=== PATIENT | female | born 1970 | race Caucasian/White ===

== ENCOUNTER → 2016-09-08 | Day surgery (SDC) | payer MEDICARE ==
[~2016-09-08] MED LIST: ALPRAZOLAM PO; ATARAX; AUGMENTIN PO; AUGMENTIN875 MG PO; CARAFATE1 G PO; CARAFATE1 GM PO; COUMADIN5 MG PO; DEPAKOTE PO; DIOVAN; DIOVAN HCT 80/11 TAB PO; EFFEXOR; EFFEXOR XR PO; EFFEXOR75 MG PO; GLUCOPHAGE XR500 MG PO; GLUCOPHAGE500 MG PO; HCTZ PO; HYDROCHLOROTHIA25 MG PO; K-DUR20 ME1 PO; K-DUR20 ME2 PO; LEXAPRO; LISINOPRIL10 MG PO; LISINOPRIL20 MG PO; LORTAB 2.5/5001 TAB PO; LORTAB 7.5-5001 TAB PO; LOVENOX SUBQ; METFORMIN HCL500 M2 PO; MIRALAX17 G1 PO; OXYCONTIN PO; PAXIL PO; PERCOCET 10-651 EACH PO; PHENERGAN25 MG PO; PROTONIX PO; PROVENTIL INH0.5 ML IH; RELAFEN PO; ROBAXIN500 MG PO; SKELAXIN PO; SYNTHROID PO; TRAZODONE; TYLENOL #3 PO; VICODIN PO; VOLTAREN75 MG PO; ZITHROMAX500 MG PO; ZOFRAN ODT4 MG PO; ZOFRANODT PO
== END | disposition home or self-care (01) ==
LOC: CCSC 10:13
DX: M51.16 Intervertebral disc disorders with radiculopathy, lumbar region (principal); F41.9 Anxiety disorder, unspecified; F32.9 Major depressive disorder, single episode, unspecified; E03.9 Hypothyroidism, unspecified; E11.9 Type 2 diabetes mellitus without complications; Z79.899 Other long term (current) drug therapy
CPT/HCPCS: 82947; J1040; J2250

== ENCOUNTER 2016-11-16 23:46 | Emergency (ER) | payer MEDICARE ==
--- NOTE | ~2016-11-16 | CR2 ---
[facility] A Service [facility] RADIOLOGY TEXT RESULTS PATIENT: ISIDORO STEVENS LOCATION: SED : 66 UNIT #: [id number] AGE: [address]: Carlos Antoine MD SEX: F ORDER DR: [id number] [place] [id number] E MR#: [id number] Acc #: [id number] NAME: ISIDORO STEVENS : 1970 SEX: F STUDY DATE/TIME: 11/17/2016 0:54 UNIT: SED ROOM: STUDY DESCRIPTION: CR Abdomen Acute Series Attending Physician: Soni Boyer Pa-C Ordering Physician: Soni Boyer Pa-C Primary Care Physician: Germain Lepe D.O. MEDICAL IMAGING REPORT This report is preliminary unless electronic signature is present. EXAM Acute abdomen series INDICATIONS Abdominal pain, epigastric pain for 4 days. COMPARISON 12/04/2013 FINDINGS A PA view of the chest and a flat and upright view of the abdomen were obtained. The heart size and vascularity are normal and the lungs are clear. The bowel gas pattern is nonspecific, without evidence of obstruction. There is a gastric band device present. The bones are unremarkable. IMPRESSION 1. No evidence of bowel obstruction or inflammation. 2. Normal chest. Dictated by... Jignesh Heart M.D. THIS IS AN ELECTRONICALLY VERIFIED REPORT Jignesh Heart M.D. at 11/17/2016 5:51 AM FEL/psc TD: 11/17/2016 02:01 JOB #: [id number] [facility] A Service [facility] RADIOLOGY TEXT RESULTS PATIENT: ISIDORO STEVENS LOCATION: SED : 66 UNIT #: [id number] AGE: [address]: Carlos Antoine MD SEX: F ORDER DR: MEDICAL IMAGING REPORT Page 1 of 1
--- NOTE | ~2016-11-16 | CT2 ---
[facility] A Service of [facility] RADIOLOGY TEXT RESULTS PATIENT: ISIDORO STEVENS LOCATION: SED : 66 UNIT #: [id number] AGE: [address]: Carlos Antoine MD SEX: F ORDER DR: [id number] [address] [address] [id number] E MR#: [id number] Acc #: [id number] NAME: ISIDORO STEVENS. : 1970 SEX: F STUDY DATE/TIME: 11/17/2016 2:11 UNIT: SED ROOM: STUDY DESCRIPTION: CT Abd and Pelv W Cont Attending Physician: Carlos Antoine M.D. Ordering Physician: Soni Boyer Pa-C Primary Care Physician: Germain Lepe D.O. MEDICAL IMAGING REPORT This report is preliminary unless electronic signature is present. EXAM CT abdomen and pelvis with contrast INDICATIONS Epigastric pain and nausea for 3 days. 11/17 COMPARISON 08/14/2015 TECHNIQUE Patient was given 100 mL of Isovue-370 and axial 5-mm images were obtained through the abdomen and pelvis. This CT exam was performed with one or more of the following radiation dose reduction techniques: Automatic exposure control, adjustment of mA and/or kV according to patient size, and iterative reconstruction. FINDINGS Lung bases are clear. There is a gastric band device present. The liver has a small, 15-mm cyst near the falciform ligament. The gallbladder contains numerous small stones and is otherwise normal. The spleen, pancreas, adrenal glands and kidneys are normal except for a 12-mm right renal cyst. The aorta is normal in size. The uterus, adnexal regions and bladder are normal. IMPRESSION 1. Numerous small gallstones without evidence of cholecystitis. 2. Small hepatic and right renal cyst. 3. Gastric band device. 4. Otherwise, normal. [facility] A Service of [facility] RADIOLOGY TEXT RESULTS PATIENT: ISIDORO STEVENS LOCATION: SED : 66 UNIT #: [id number] AGE: [address]: Carlos Antoine MD SEX: F ORDER DR: Dictated by... Jignesh Heart M.D. THIS IS AN ELECTRONICALLY VERIFIED REPORT Jignesh Heart M.D. at 11/17/2016 5:51 AM FEL/psc TD: 11/17/2016 03:40 JOB #: [id number] MEDICAL IMAGING REPORT Page 1 of 1
[~2016-11-16 23:46] MED LIST changes: -CARAFATE1 GM PO
[2016-11-17 00:49] LABS: BASOPHIL# 0.1 X10e3 (0-0.3); BASOPHIL% 1.1 % (0-2.5); EOSINOPHIL# 0.1 X10e3 (0-0.7); EOSINOPHIL% 2.3 % (0.0-7.0); HEMATOCRIT 42.4 % (35.0-45.0); HEMOGLOBIN 14.3 gm/dL (12.0-16.0); LYMPHOCYTE# 2.1 X10e3 (1.0-3.5); LYMPHOCYTE% 37.6 % (17.0-45.0); MEAN CELL VOLUME 90.1 FL (83-96); MEAN CORPUSCULAR HEMOGLOBIN 30.4 PG (28-34); MEAN CORPUSCULAR HGB CONC 33.8 g/dL (30-36); MEAN PLATELET VOLUME 7.6 FL (6.5-11.5); MONOCYTE# 0.4 X10e3 (0-1.0); MONOCYTE% 7.5 % (3.0-12.0); NEUTROPHIL# 2.9 X10e3 (1.5-7.1); NEUTROPHIL% 51.5 % (40-75); PLATELET COUNT 260 X10e3 (140-420); RED BLOOD COUNT 4.71 X10e (3.90-5.30); RED CELL DISTRIBUTION WIDTH 13.1 % (11.0-15.5); WHITE BLOOD COUNT 5.6 X10e3 (4.0-10.5)
[2016-11-17 00:50] LABS: URINE SOURCE CLEAN CATCH
[2016-11-17 00:51] LABS: DIFF IND NO
[2016-11-17 00:52] LABS: URINE APPEARANCE CLEAR; URINE BILIRUBIN NEG (NEG); URINE BLOOD TRACE-INTACT (NEG); URINE COLOR YELLOW; URINE GLUCOSE NEG (NORM); URINE KETONE NEG (NEG); URINE LEUKOCYTE ESTERASE 2+ (NEG); URINE NITRATE NEG (NEG); URINE PH 7.5 (5-8); URINE PROTEIN NEG (NEG); URINE SPECIFIC GRAVITY <=1.005 (1.003-1.035); URINE UROBILINOGEN 0.2 MG/DL (NORM)
[2016-11-17 00:54] LABS: MICRO INDICATED? YES
[2016-11-17 00:56] LABS: CULTURE INDICATED? YES; URINE BACTERIA 1+ (NEG); URINE SQUAMOUS EPITHELIAL CELL OCCAS /[HPF]; URINE TRANSITIONAL EPI CELLS FEW /[HPF]
[2016-11-17 01:10] LABS: ALBUMIN SERUM 4.2 g/dL (3.5-5.0); ALKALINE PHOSPHATASE 248 U/L (32-92); ALT (SGPT) 453 U/L (10-40); AMYLASE 18 U/L (0-46); AST (SGOT) 258 U/L (10-42); BILIRUBIN, DIRECT <0.1 mg/dL (0.0-0.2); BILIRUBIN,INDIRECT 0.1 mg/dL (0.0-0.9); BILIRUBIN,TOTAL 0.2 mg/dL (0.2-2.0); BLOOD UREA NITROGEN 10 mg/dL (9-23); BUN/CREATININE RATIO 14.28; CALCIUM SERUM 9.1 mg/dL (8.4-10.2); CARBON DIOXIDE 26 mmol/L (22-31); CHLORIDE 102 mmol/L (100-111); CREATININE SERUM 0.7 mg/dL (0.6-1.4); GLOM FILT RATE Estimated 102.5 mL/min (>60); GLUCOSE FASTING 111 mg/dL (70-110); LIPASE 42 U/L (22-51); POTASSIUM 3.3 mmol/L (3.5-5.1); PROTEIN TOTAL SERUM 7.4 g/dL (6.0-8.3); SODIUM 133 mmol/L (135-145)
[2016-12-28] MEDS ORDERED: PROTONIX PO (15:39)
[2016-12-29] MEDS ORDERED: CARAFATE1 GM PO (12:25)
== END 2016-11-17 03:16 | disposition home or self-care (01) ==
LOC: SED 23:46
PROVIDERS: Physician Assistant Medical
DX: K80.70 Calculus of gallbladder and bile duct without cholecystitis without obstruction (principal); K75.9 Inflammatory liver disease, unspecified; E11.9 Type 2 diabetes mellitus without complications; I10 Essential (primary) hypertension; F32.9 Major depressive disorder, single episode, unspecified; Z90.49 Acquired absence of other specified parts of digestive tract; Z98.51 Tubal ligation status; Z79.899 Other long term (current) drug therapy; Z88.1 Allergy status to other antibiotic agents; Z88.2 Allergy status to sulfonamides
CPT/HCPCS: 74022; 74177; 80048; 80076; 81003; 82150; 83690; 85025; 87086; 96374; 99284; C9113; Q9967

== ENCOUNTER → 2016-12-29 | Day surgery (SDC) | payer MEDICARE ==
[~2016-12-29] MED LIST changes: +CARAFATE1 GM PO
--- NOTE | ~2016-12-29 | OR ---
Unit #: [id number] #: [id number] Patient: ISIDORO STEVENS [id number] [address] [place], [place] [address] [id number] O MR#: [id number] NAME: ISIDORO STEVENS. ROOM: Date of Procedure: 12/29/2016 Admission Date: 12/29/2016 Surgeon: Natan Cole M.D. : 1970 Attending Physician: Natan Cole M.D. Primary Care Physician: Germain Lepe D.O. OPERATIVE REPORT PREOPERATIVE DIAGNOSES Herniated nucleus pulposus, back pain, radiculopathy. POSTOPERATIVE DIAGNOSES Herniated nucleus pulposus, back pain, radiculopathy. PROCEDURE PERFORMED Lumbar epidural steroid injection with fluoroscopic guidance for needle localization. INDICATIONS FOR PROCEDURE The patient is a 46-year-old female with return of back and left lower extremity pain. She has known L4-L5 disk herniation, had been symptomatic worse to the right recently, but has had episodes of the left-sided pain as well. She was treated with epidural steroids twice. Four months ago, she did very well until just recently. Plan is to repeat injection based on history, pathology, and symptomatology. She also brought to undergo some cancer surgeries. DESCRIPTION OF PROCEDURE The patient was placed in a seated position. Standard monitors were applied. Sterile prep and drape of the lumbar area was performed. The skin then at the L4 level was localized with 1% lidocaine. An 18-gauge Hustead needle was then advanced via loss of resistance technique and fluoroscopic guidance in toward the epidural space. After confirming proper positioning with fluoroscopy and radiographic contrast, 80 mg of Depo-Medrol and 4 mL of preservative-free normal saline were deposited. The patient tolerated the procedure otherwise well and was discharged to the recovery room in stable condition. Dictated by... Ricardo Cantrell/anam TD: 12/30/2016 00:47 JOB #: [id number] Unit #: [id number] #: [id number] Patient: ISIDORO STEVENS OPERATIVE REPORT Page 1 of 1 X Natan Cole MD X PROCEDURE OPERATIVE NOTE
== END | disposition home or self-care (01) ==
LOC: CCSC 10:27
DX: M51.16 Intervertebral disc disorders with radiculopathy, lumbar region (principal); E11.9 Type 2 diabetes mellitus without complications; E66.01 Morbid (severe) obesity due to excess calories; F41.9 Anxiety disorder, unspecified; F32.9 Major depressive disorder, single episode, unspecified
CPT/HCPCS: 82947; J1040

== ENCOUNTER → 2016-12-30 | Day surgery (SDC) | payer MEDICARE ==
--- NOTE | ~2016-12-30 | OR ---
Unit #: [id number] #: [id number] Patient: ISIDORO STEVENS [id number] [address] [place], [place] [address] [id number] O MR#: [id number] NAME: ISIDORO STEVENS. ROOM: Date of Procedure: 12/30/2016 Admission Date: 12/30/2016 Surgeon: Braden Fernandez III, M.D. : 1970 Attending Physician: Braden Fernandez III, M.D. Primary Care Physician: Germain Lepe D.O. OPERATIVE REPORT PREOPERATIVE DIAGNOSES Abdominal pain, history of vulvar cancer, and diarrhea. POSTOPERATIVE DIAGNOSES Normal upper endoscopy, rectal polyp at 10 cm, and external hemorrhoid with squamous cell changes at the tip. PROCEDURE PERFORMED Esophagogastroduodenoscopy with PETROS testing and colonoscopy with snare polypectomy x1. ANESTHESIA MAC. SPECIMENS Antrum was sent for PETROS testing and colon polyps to pathology. COMPLICATIONS None apparent. INDICATIONS FOR PROCEDURE This is a 46-year-old lady, who I saw in the office for biliary dyskinesia. She was also recently diagnosed with vulvar cancer and has some unexplained diarrhea. She is here today for upper and lower endoscopy. DESCRIPTION OF PROCEDURE After consent was obtained, the patient was brought to the endoscopy suite, placed in the left lateral decubitus position. We titrated the above sedation and I passed an EGD scope easily into the esophagus under direct visualization. She had normal peristalsis. No evidence of any erosions or esophagitis. There was no evidence of hiatal hernia. The scope was passed down into the stomach and there was no gastritis or ulcerations or masses. The pylorus was patent and the first and second portions of the duodenum appeared normal. I then took a biopsy of the antrum for PETROS testing and the scope was retroflexed within the cardia, and again no other abnormalities were seen. The scope was then carefully withdrawn. I then performed a rectal exam and she had an external hemorrhoid that had some squamous cell changes towards the tip of the external hemorrhoid. There was certainly a good margin of normal tissue between the perianal region and the squamous cell changes. Given her history of vulvar cancer, I am concerned that there may be some Unit #: [id number] #: [id number] Patient: ISIDORO STEVENS precancerous changes involved in this and when I took her gallbladder out, plan on removing this as well. There were no other rectal masses felt. I passed the scope within the rectal vault. Air was insufflated and I navigated the scope all the way to the cecum without any difficulty. She had normal mucosa. No evidence of any diverticular disease and she did have one small 3 mm polyp in the rectum that had some adenomatous changes to it. I took a hot snare polypectomy of this and it was sent to pathology. Hemostasis was excellent. I did retroflex scope within the rectum, did not see any other abnormalities. The scope was then carefully withdrawn. The patient tolerated the procedure without any problems and returned to the recovery room in stable condition. Dictated by... Braden Fernandez III, M.D. VCL/anam TD: 12/31/2016 09:46 JOB #: [id number] OPERATIVE REPORT Page 1 of 1 X Braden Fernandez III, MD PROCEDURE OPERATIVE NOTE
--- NOTE | ~2016-12-30 | EKG ---
PATIENT: ISIDORO STEVENS UNIT #: [id number] Ventricular Rate: 59 BPM Atrial Rate: 59 BPM P-R Interval: 202 ms QRS Duration: 92 ms Q-T Interval: 426 ms QTC Calculation(Bezet): 421 ms P [place]: 60 degrees Calculated R [place]: 30 degrees Calculated T [place]: 48 degrees Diagnosis Line: Sinus bradycardia Diagnosis Line: Otherwise normal ECG Diagnosis Line: When compared with ECG of 13-AUG-2015 22:13, Diagnosis Line: Vent. rate has decreased BY 38 BPM Diagnosis Line: Confirmed by JAY BUSCH MD ([id number]) on Diagnosis Line: 12/31/2016 1:41:55 PM INTERPRETING MD: JENARO
[2016-12-30 13:42] LABS: BUN/CREATININE RATIO 13.33; CALCIUM SERUM 9.1 mg/dL (8.4-10.2); CREATININE SERUM 0.6 mg/dL (0.6-1.4); GLOM FILT RATE Estimated 107.8 mL/min (>60); POTASSIUM 4.1 mmol/L (3.5-5.1)
== END | disposition home or self-care (01) ==
LOC: COPS 10:42
PROVIDERS: Surgery
DX: K62.1 Rectal polyp (principal); R10.13 Epigastric pain; R10.11 Right upper quadrant pain; K64.4 Residual hemorrhoidal skin tags; I10 Essential (primary) hypertension; E78.00 Pure hypercholesterolemia, unspecified; E11.9 Type 2 diabetes mellitus without complications; E03.9 Hypothyroidism, unspecified; F41.9 Anxiety disorder, unspecified; F32.9 Major depressive disorder, single episode, unspecified; G47.30 Sleep apnea, unspecified; K21.9 Gastro-esophageal reflux disease without esophagitis; F17.210 Nicotine dependence, cigarettes, uncomplicated; Z86.010 Personal history of colon polyps; Z85.44 Personal history of malignant neoplasm of other female genital organs; Z87.442 Personal history of urinary calculi; Z86.2 Personal history of diseases of the blood and blood-forming organs and certain disorders involving the immune mechanism; Z80.3 Family history of malignant neoplasm of breast; Z88.2 Allergy status to sulfonamides; Z88.8 Allergy status to other drugs, medicaments and biological substances; Z79.891 Long term (current) use of opiate analgesic; Z79.84 Long term (current) use of oral hypoglycemic drugs; Z79.899 Other long term (current) drug therapy; Z90.49 Acquired absence of other specified parts of digestive tract; Z98.51 Tubal ligation status; Z98.84 Bariatric surgery status; Z98.890 Other specified postprocedural states
CPT/HCPCS: 80048; 82947; 87077; 88305; 93005

== ENCOUNTER → 2017-01-03 | Day surgery (SDC) | payer MEDICARE ==
--- NOTE | ~2017-01-03 | OR ---
Unit #: [id number] #: [id number] Patient: ISIDORO STEVENS [id number] [address] [address] [id number] O MR#: [id number] NAME: ISIDORO STEVENS. ROOM: Date of Procedure: 01/03/2017 Admission Date: 01/03/2017 Surgeon: Braden Fernandez III, M.D. : 1970 Attending Physician: Braden Fernandez III, M.D. Referring Physician: Braden Fernandez III, M.D. Primary Care Physician: Germain Lepe D.O. OPERATIVE REPORT PREOPERATIVE DIAGNOSES Symptomatic cholelithiasis with chronic cholecystitis and external hemorrhoid with some dysplastic appearing changes. POSTOPERATIVE DIAGNOSES Symptomatic cholelithiasis with chronic cholecystitis and external hemorrhoid with some dysplastic appearing changes. PROCEDURES PERFORMED Laparoscopic cholecystectomy and external hemorrhoidectomy. COMPLICATIONS None apparent. ESTIMATED BLOOD LOSS Minimal. SPECIMENS Gallbladder and external hemorrhoids sent to Pathology. COMPLICATIONS None apparent. INDICATIONS FOR PROCEDURE This is a 46-year-old lady, who I saw in the office with some suspected biliary colic and gallstones. She is here today for laparoscopic cholecystectomy. At time of colonoscopy last week, she was also noted to have a suspicious appearing hemorrhoid that had some dysplastic appearing cells at the tip. She is here today to have that excised. DESCRIPTION OF PROCEDURE After consent was obtained, the patient was brought to the operating room and placed in the supine position. General anesthetic was administered. Her abdomen was prepped and draped in standard surgical fashion. I made a 5-mm incision in the right upper quadrant using Optiview to enter the peritoneal cavity without any difficulty. CO2 pneumoperitoneum was then established. Next, a second 5-mm port was placed in the supraumbilical region and an 11-mm port was placed in the midepigastric region and a third 5-mm port was placed in the right lateral subcostal region. I began by retracting the gallbladder superiorly and laterally. I dissected out the cystic duct and cystic artery and after these were carefully identified, I placed 2 clips proximally and one clip distally along both Unit #: [id number] #: [id number] Patient: STEVENS,ISIDORO M structures and then they were divided. The gallbladder was then taken off the liver bed using the hook cautery without any spillage of bile. It should be noted that her Lap-Band tubing appeared to be in good condition. I extracted the gallbladder through the epigastric port site with some dilatation of the fascia. I had excellent hemostasis and all needle, sponge, and instrument counts were correct x2. I used a neoClose device to reapproximate the fascia at the epigastric port site and then all the ports were removed. Pneumoperitoneum was released. The incisions were all injected with 0.25% plain Marcaine and I reapproximated the skin edges with interrupted 4-0 Vicryl subcuticular suture. Steri-Strips were then applied. We then repositioned the patient in dorsal lithotomy position. The hemorrhoid was easily identified and had a narrow base. The base of the hemorrhoid appeared to be normal tissue and the tip of it had the dysplastic appearing cells. We prepped and draped this area with Betadine. I injected the base with 0.25% plain Marcaine. I sharply cut the base off and then reapproximated the skin edges with a 3-0 chromic [id number] suture. She tolerated the procedure without any problems and returned to the recovery room in stable condition. Dictated by... Braden Fernandez III, M.D. VCL/anam TD: 01/04/2017 07:40 JOB #: [id number] OPERATIVE REPORT Page 1 of 1 X Braden Fernandez III, MD PROCEDURE OPERATIVE NOTE
== END | disposition home or self-care (01) ==
LOC: CSUR 07:30
DX: K80.10 Calculus of gallbladder with chronic cholecystitis without obstruction (principal); K64.4 Residual hemorrhoidal skin tags; I10 Essential (primary) hypertension; E78.00 Pure hypercholesterolemia, unspecified; E11.9 Type 2 diabetes mellitus without complications; E03.9 Hypothyroidism, unspecified; K21.9 Gastro-esophageal reflux disease without esophagitis; F17.210 Nicotine dependence, cigarettes, uncomplicated; F41.9 Anxiety disorder, unspecified; F32.9 Major depressive disorder, single episode, unspecified; C51.9 Malignant neoplasm of vulva, unspecified; G47.30 Sleep apnea, unspecified; Z85.44 Personal history of malignant neoplasm of other female genital organs; Z87.442 Personal history of urinary calculi; Z86.2 Personal history of diseases of the blood and blood-forming organs and certain disorders involving the immune mechanism; Z80.3 Family history of malignant neoplasm of breast; Z88.2 Allergy status to sulfonamides; Z88.8 Allergy status to other drugs, medicaments and biological substances; Z79.84 Long term (current) use of oral hypoglycemic drugs; Z79.899 Other long term (current) drug therapy; Z98.51 Tubal ligation status; Z90.49 Acquired absence of other specified parts of digestive tract; Z98.84 Bariatric surgery status; Z98.890 Other specified postprocedural states
CPT/HCPCS: 82947; 88304; J0330; J2250; J2405; J2710; J3010

== ENCOUNTER → 2017-03-23 | Day surgery (SDC) | payer MEDICARE ==
--- NOTE | ~2017-03-23 | OR ---
Unit #: [id number] #: [id number] Patient: ISIDORO STEVENS [id number] [address] [address] [id number] O MR#: [id number] NAME: ISIDORO STEVENS. ROOM: Date of Procedure: 03/23/2017 Admission Date: 03/23/2017 Surgeon: Natan Cole M.D. : 1970 Attending Physician: Natan Cole M.D. Primary Care Physician: Germain Lepe D.O. OPERATIVE REPORT PREOPERATIVE DIAGNOSES Herniated nucleus pulposus, back pain, radiculopathy. POSTOPERATIVE DIAGNOSIS Herniated nucleus pulposus, back pain, radiculopathy. PROCEDURE PERFORMED Lumbar epidural steroid injection with fluoroscopic guidance for needle localization. INDICATIONS FOR PROCEDURE The patient is a 47-year-old female, who has had return of back and right lower extremity pain associated with known L4-L5 disk herniation. She does not want surgeries combination of medical management and p.r.n. epidural steroids. She recently had a surgical procedure which required a lithotomy position and flare of pain significantly, plan is to repeat an epidural steroid injection based on the history, pathology, and symptomatology. DESCRIPTION OF PROCEDURE The patient was placed in the seated position. Standard monitors were applied. Sterile prep and drape of the lumbar area was performed. The skin then at the L4-L5 level was localized with 1% lidocaine. An 18-gauge Hustead needle was then advanced via loss of resistance technique and fluoroscopic guidance in toward the epidural space. After confirming proper positioning with fluoroscopy and radiographic contrast, 80 mg of Depo-Medrol and 2 mL of preservative-free normal saline were deposited. The patient tolerated the procedure otherwise well and was discharged to the recovery room in stable condition. Dictated by... Ricardo CantrellP/mark anthonyl TD: 03/23/2017 11:59 JOB #: [id number] Unit #: [id number] #: [id number] Patient: ISIDORO STEVENS OPERATIVE REPORT Page 1 of 1 X Natan Cole MD X PROCEDURE OPERATIVE NOTE
== END | disposition home or self-care (01) ==
LOC: CCSC 10:24
DX: M51.17 Intervertebral disc disorders with radiculopathy, lumbosacral region (principal); E11.9 Type 2 diabetes mellitus without complications; E66.01 Morbid (severe) obesity due to excess calories; F32.9 Major depressive disorder, single episode, unspecified; F41.9 Anxiety disorder, unspecified; Z88.2 Allergy status to sulfonamides; Z88.8 Allergy status to other drugs, medicaments and biological substances; Z79.891 Long term (current) use of opiate analgesic; Z79.84 Long term (current) use of oral hypoglycemic drugs; Z79.899 Other long term (current) drug therapy
CPT/HCPCS: 82947; J1040; J2250

== ENCOUNTER → 2017-04-04 | Day surgery (SDC) | payer MEDICARE ==
--- NOTE | ~2017-04-04 | OR ---
Unit #: [id number] #: [id number] Patient: ISIDORO STEVENS [id number] [address] [place], [place] [address] [id number] O MR#: [id number] NAME: ISIDORO STEVENS ROOM: Date of Procedure: 04/04/2017 Admission Date: 04/04/2017 Surgeon: Natan Cole M.D. : 1970 Attending Physician: Natan Cole M.D. Referring Physician: Natan Cole M.D. Primary Care Physician: Germain Lepe D.O. OPERATIVE REPORT PREOPERATIVE DIAGNOSES 1. Back pain, radiculopathy, lumbar disk herniation. 2. Neck pain and cervicogenic headaches. POSTOPERATIVE DIAGNOSES 1. Back pain, radiculopathy, lumbar disk herniation. 2. Neck pain and cervicogenic headaches. PROCEDURES PERFORMED 1. Lumbar epidural steroid injection with fluoroscopic guidance for needle localization. 2. Bilateral occipital nerve blocks. INDICATIONS FOR PROCEDURE The patient is a 47-year-old female, status post COMMUNICATIONS TECH surgery with significant flare of back pain associated with known L4-L5 disk herniation. She had an epidural steroid injection done last week to try and settle her pain back down. It helped settle back down by about 50%. She still has the pain higher than usual, so we are going to proceed with a second injection today. She also has known degenerative cervical disk disease and cervicogenic headaches. It is quite severe at this point bilaterally, so the plan is to do bilateral occipital nerve block, so the patient is here today. DESCRIPTION OF PROCEDURE Procedure #1: The patient was placed in a seated position. Standard monitors were applied. Sterile prep and drape of the lumbar area were performed. The skin at the L4-L5 level was localized with 1% lidocaine. An 18-gauge [employer] needle was then advanced via loss of resistance technique and fluoroscopic guidance in toward the epidural space. After confirming proper positioning with fluoroscopy and radiographic contrast, 80 mg of Depo-Medrol and 2 mL of preservative-free normal saline were deposited. The patient tolerated this part of procedure well. Procedure #2: Bilateral occipital nerve blocks. The occipital nerve path was located at the occipital area, just medial to the occipital artery on the right side. At this point, a 27-gauge needle was used through an injection of 3.5 mL of a combination of 40 mg of Kenalog and 6 mL of 0.25% bupivacaine. The patient tolerated this part of procedure well. The exact same procedure was then repeated on the left. After localizing the left occipital artery, the needle was advanced just medial to this and again a fan-like distribution of 3.5 mL of a mixture of that injectate was Unit #: [id number] #: [id number] Patient: ISIDORO STEVENS. The patient tolerated the procedure well and was discharged to the recovery room in stable condition. Dictated by... Ricardo Cantrell/anam TD: 04/04/2017 14:49 JOB #: [id number] CC: [facility] OPERATIVE REPORT Page 1 of 1 X Natan Cole MD X PROCEDURE OPERATIVE NOTE
== END | disposition home or self-care (01) ==
LOC: CCSC 10:15
DX: M51.16 Intervertebral disc disorders with radiculopathy, lumbar region (principal); G44.81 Hypnic headache; E11.9 Type 2 diabetes mellitus without complications; E66.01 Morbid (severe) obesity due to excess calories; F41.9 Anxiety disorder, unspecified; F32.9 Major depressive disorder, single episode, unspecified; Z88.2 Allergy status to sulfonamides; Z88.8 Allergy status to other drugs, medicaments and biological substances; Z79.84 Long term (current) use of oral hypoglycemic drugs; Z79.899 Other long term (current) drug therapy
CPT/HCPCS: 82947; J1040; J2250; J3301